=== PATIENT | female | born 1950 | race Caucasian/White ===

== ENCOUNTER 2019-05-24 07:28 | Day surgery (SDC) | payer MEDICARE, SELFPAY ==
[2019-05-24 08:09] VITALS: BP 125/75; PULSE 71; RESP 16; TEMP 36; O2SAT 99; BMI 29.8
[2019-05-24] MEDS: PROPARACAINE 0.5% OPHTH SOL 2 DROPS EYE-OP (08:15)
[2019-05-24] MEDS: CATARACT EYE COMPOUND (10 DROPS/SYRINGE) 3 DROPS EYE-OP (08:20)
--- NOTE | 2019-05-24 09:03 | PM.PREOP ---
Pre-operative Note Interval Note History & Physical reviewed/Exam performed by Physician: No Changes to H&P: No
--- NOTE | 2019-05-24 09:03 | PM.OP.1 ---
Operative Date/Time/Diagnoses Pre-op diagnosis: Nuclear Cataract Left eye Post-op diagnosis: same Procedure & Clinicians Surgeon: Pablo Mraadiaga Anesthesia Type: MAC +/- and Sedation Operative Notes Procedure in detail: Patient brought to the operating suite. Tetracaine drops placed in the left eye. Marking instrument was used to yuli the vertical and horizontal meridians. Patient was prepped and draped in sterile manner. Wire lid speculum was placed in the eye. Marking instrument was used to yuli the 125 degree meridain. Betadine drops were placed on the eye. This was irrigated. Lidocaine jelly was placed on the eye. A paracentesis port was created with a side-port blade. 0.1 mL 1% preservative free lidocaine was injected into the anterior chamber. The anterior chamber was deepened with viscoelastic. 2.6 mm keratome was used to create a temporal clear corneal incision. Cystotome and Utrata forceps were used to create continuous tear capsulorrhexis. Balanced salt solution was used to hydro dissect the nucleus. The phacoemulsification handpiece was inserted and the nucleus was removed using the stop and chop technique. The irrigation aspiration handpiece was inserted and the remaining cortex was removed. Anterior chamber was deepened with viscoelastic. An Palmer [id number] intraocular lens with a power of 22.5 was injected into the capsular bag. Irrigation aspiration handpiece was inserted and the remaining viscoelastic was removed. The lens was rotated to the 125 degree meridian. Incision was hydrated with balanced salt solution and found to be leak free with pressure with Weck-Arlen sponges. 0.1 mL Vigamox injected anterior chamber. 0.3 mL Kenalog 10 mg was injected subconjunctivally. Lid speculum was removed. The patient left the operating room in excellent condition. Complications: none Post-operative Condition: stable Disposition: same day surgery
[2019-05-24] MEDS: CHONDROIDTIN/SOD HYALURONATE 1.05 ML SYRINGE INTRAOCULA (09:17)
[2019-05-24] MEDS: TETRACAINE 0.5% OPHTH DROPS 4 ML 2 DROPS EYE-OP (09:17)
[2019-05-24] MEDS: BALANCED SALT IRRIG SOLN NO.2 500 ML, EPINEPHrine 1 MG IRR (09:17)
[2019-05-24] MEDS: PHENYLEPHRINE/LIDOCAINE VIAL (OR) 0.2 ML EYE-OP (09:18)
[2019-05-24] MEDS: TRIAMCINOLONE 50 MG/5 ML VIAL INJ (09:18)
[2019-05-24] MEDS: MOXIFLOXACIN INJ 5 MG/ML VIAL EYE-OP (09:18)
[2019-05-24] MEDS: LIDOCAINE JELLY 2% 5 ML 1 APPLIC TOP (09:18)
[2019-05-24 09:34] VITALS: BP 127/71; PULSE 67; RESP 16; TEMP 36.6; O2SAT 100
== END 2019-05-24 09:46 | disposition home or self-care (01) ==
PROVIDERS: Family Provider Family Medicine; PCP Family Medicine; Visit Provider Ophthalmology
PROC: (CPT 66984; principal; 2019-05-24 09:15)
DX: H25.12 Age-related nuclear cataract, left eye (principal); F41.9 Anxiety disorder, unspecified; J45.909 Unspecified asthma, uncomplicated
CPT/HCPCS: 66984; J0171; J2250; J3301; V2787

== ENCOUNTER 2019-06-07 07:02 | Day surgery (SDC) | payer MEDICARE, SELFPAY ==
[2019-06-07 07:50] VITALS: BMI 29.5
[2019-06-07] MEDS: PROPARACAINE 0.5% OPHTH SOL 2 DROPS EYE-OP (07:58)
[2019-06-07] MEDS: CATARACT EYE COMPOUND (10 DROPS/SYRINGE) 3 DROPS EYE-OP (08:10)
--- NOTE | 2019-06-07 08:37 | PM.PREOP ---
Pre-operative Note Interval Note History & Physical reviewed/Exam performed by Physician: No Changes to H&P: No
--- NOTE | 2019-06-07 08:37 | PM.OP.1 ---
Operative Date/Time/Diagnoses Pre-op diagnosis: Nuclear cataract right eye Procedure & Clinicians Procedure: Cataract Surgery Same procedure as scheduled: Yes Surgeon: Pablo Maradiaga Anesthesia Type: MAC +/- and Sedation Operative Notes Procedure in detail: Patient brought to the operating suite. Tetracaine drops placed in the right eye. marking instrument was used to yuli the vertical and horizontal meridians. Patient was prepped and draped in sterile manner. Wire lid speculum was placed in the eye. Marking instrument was used to yuli the 100 degree meridian. Betadine drops were placed on the eye. This was irrigated. Lidocaine jelly was placed on the eye. A paracentesis port was created with a side-port blade. 0.1 mL 1% preservative free lidocaine was injected into the anterior chamber. The anterior chamber was deepened with viscoelastic. 2.6 mm keratome was used to create a temporal clear corneal incision. Cystotome and Utrata forceps were used to create continuous tear capsulorrhexis. Balanced salt solution was used to hydro dissect the nucleus. The phacoemulsification handpiece was inserted and the nucleus was removed using the stop and chop technique. The irrigation aspiration handpiece was inserted and the remaining cortex was removed. Anterior chamber was deepened with viscoelastic. An Palmer [id number] intraocular lens with a power of 21.0 was injected into the capsular bag. Irrigation aspiration handpiece was inserted and the remaining viscoelastic was removed. The lens was rotated to the 100 degree meridian. Incision was hydrated with balanced salt solution and found to be leak free with pressure with Weck-Arlen sponges. 0.1 mL Vigamox injected anterior chamber. 0.3 mL Kenalog 10 mg was injected subconjunctivally. Lid speculum was removed. The patient left the operating room in excellent condition. Complications: none Post-operative Condition: stable Disposition: same day surgery
[2019-06-07] MEDS: MOXIFLOXACIN INJ 5 MG/ML VIAL EYE-OP (08:54)
[2019-06-07] MEDS: PHENYLEPHRINE/LIDOCAINE VIAL (OR) 0.2 ML EYE-OP (08:54)
[2019-06-07] MEDS: TRIAMCINOLONE 50 MG/5 ML VIAL INJ (08:55)
[2019-06-07] MEDS: TETRACAINE 0.5% OPHTH DROPS 4 ML 2 DROPS EYE-OP (08:55)
[2019-06-07] MEDS: CHONDROIDTIN/SOD HYALURONATE 1.05 ML SYRINGE INTRAOCULA (08:55)
[2019-06-07] MEDS: LIDOCAINE JELLY 2% 5 ML 1 APPLIC TOP (08:55)
[2019-06-07] MEDS: BALANCED SALT IRRIG SOLN NO.2 500 ML, EPINEPHrine 1 MG IRR (08:56)
[2019-06-07 09:10] VITALS: BP 134/69; PULSE 65; RESP 14; TEMP 36.2; O2SAT 98
== END 2019-06-07 09:29 | disposition home or self-care (01) ==
PROVIDERS: PCP Family Medicine; Visit Provider Ophthalmology
PROC: (CPT 66984; principal; 2019-06-07 08:45)
DX: H25.11 Age-related nuclear cataract, right eye (principal); F41.9 Anxiety disorder, unspecified; J45.909 Unspecified asthma, uncomplicated
CPT/HCPCS: 66984; J0171; J2250; J3010; J3301; V2787

== ENCOUNTER 2019-07-26 11:02 | Day surgery (SDC) | payer MEDICARE, SELFPAY ==
[2019-07-26] MEDS: PROPARACAINE 0.5% OPHTH SOL 2 DROPS EYE-OP (11:55)
[2019-07-26] MEDS: CATARACT EYE COMPOUND (10 DROPS/SYRINGE) 3 DROPS EYE-OP (12:00)
[2019-07-26 12:05] VITALS: BP 128/81; PULSE 74; RESP 20; TEMP 36.8; O2SAT 99; BMI 29.2
--- NOTE | 2019-07-26 12:53 | PM.PREOP ---
Pre-operative Note Interval Note History & Physical reviewed/Exam performed by Physician: No Changes to H&P: No
--- NOTE | 2019-07-26 12:53 | PM.OP.1 ---
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 Patient was prepped and drape in sterile fashion. The marking pen and toric instrument was used to yuli 29 degrees clockwise from current lens position. Betadine drops were placed on the eye. This was rinsed. Lidocaine jelly was placed on the eye. The existing paracentesis incision was opened with side port blade. 0.1 ml Lidocaine/phenilephrine mixture was injected into anterior chamber. The anterior chamber was deepened with viscoelastic. The existing main incision was opened with keratome. The capsule bag was filled with viscoelastic and the lens was gently freed in the bag with careful disection with viscoelastic. The haptics were very adherent to the capsule and mostly freed, but excessive disection was avoided because of risk of capusle bag or zonule tears. The lens was gently rotated. Only about 20 degree rotation clockwise rather than the planed 29 degrees clockwise rotation was achieved to avoid risk of bag or zonule damage. The viscoelastic was removed. The incision was hydrated with balanced salt solution and was leak free with pressure with wekcel sponges. 0.1mm moxifoxacin was injected into the anterior chamber. 0.2mm of [id number] was injected subconjunctivally. The lid speculum was removed. The patient left the operating room in excellent condition.
[2019-07-26] MEDS: PHENYLEPHRINE/LIDOCAINE VIAL (OR) 0.2 ML EYE-OP ×2 (13:12→13:14)
[2019-07-26] MEDS: CHONDROIDTIN/SOD HYALURONATE 1.05 ML SYRINGE INTRAOCULA (13:13)
[2019-07-26] MEDS: LIDOCAINE JELLY 2% 5 ML 1 APPLIC TOP (13:13)
[2019-07-26] MEDS: MOXIFLOXACIN INJ 5 MG/ML VIAL EYE-OP (13:13)
[2019-07-26] MEDS: TETRACAINE 0.5% OPHTH DROPS 4 ML 2 DROPS EYE-OP (13:14)
[2019-07-26] MEDS: TRIAMCINOLONE 50 MG/5 ML VIAL INJ (13:14)
[2019-07-26] MEDS: BALANCED SALT IRRIG SOLN NO.2 500 ML, EPINEPHrine 1 MG IRR (13:15)
[2019-07-26 13:27] VITALS: BP 142/77; PULSE 74; RESP 15; TEMP 36.2; O2SAT 97
== END 2019-07-26 13:49 | disposition home or self-care (01) ==
PROVIDERS: PCP Family Medicine; Visit Provider Ophthalmology
PROC: (CPT 66825; principal; 2019-07-26 13:15)
DX: T85.22XA Displacement of intraocular lens, initial encounter (principal); J45.909 Unspecified asthma, uncomplicated; F41.9 Anxiety disorder, unspecified
CPT/HCPCS: 66825; J0171; J2250; J3010; J3301

== ENCOUNTER → 2021-06-19 12:04 | Outpatient (CLI) | payer MEDICARE, SELFPAY ==
--- NOTE | 2021-06-19 12:10 | DI.CT.S_ITS ---
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 Additional oblique axial 3.0 mm sections acquired through the pharynx. 3 mm thick coronal and sagittal reformats were generated. For radiation dose reduction, the following was used: automated exposure control. COMPARISON: None. FINDINGS: Image quality: Excellent. Lymph nodes: No enlarged lymph nodes seen throughout the neck. Right common carotid artery follows a medial course project into the retropharyngeal space. Vessels: Visualized vasculature appears patent. Neck spaces: The oropharynx, nasopharynx, and pharynx demonstrate no mucosal lesions. The vocal cords, false vocal cords, pyriform sinuses, epiglottis, vallecula, and tongue base all appear normal. Extramucosal spaces appear unremarkable. Glands: The parotid and submandibular glands appear normal. Thyroid gland is within normal limits. Miscellaneous: Visualized brain and orbits appear normal. Lung apices appear clear. Superficial soft tissues appear normal. Bones: No suspicious bony lesions. Spine degenerative disc disease and facet arthropathy. Visualized sinuses and mastoids appear unremarkable. IMPRESSION: 1. No mucosal based mass or other abnormal mass. 2. No lymphadenopathy based on size criteria. Dictated by: Marissa Connolly MD, PhD on 06/19/2021 at 14:12 Approved by: Marissa Connolly MD, PhD on 06/19/2021 at 14:16
--- NOTE | 2021-06-19 12:10 | DI.CT.S_ITS ---
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 Coronal and sagittal reformats were performed. For radiation dose reduction, the following was used: automated exposure control, adjustment of mA and/or kV according to patient size. COMPARISON: Outside Film, CT, CT ABDOMEN WITH/WITHOUT CONTRAST, 04/30/2018, 17:03. FINDINGS: Image quality: Excellent. CHEST: Lower Neck: No enlarged lymph nodes. Thyroid: Within normal limits. Axillae: No enlarged lymph nodes. Chest Wall: Unremarkable. Lungs and Airways: Multiple pulmonary nodules as follows: 1. Minor fissure nodule measuring 3 mm, image 157/4. 2. 2 mm right middle lobe pulmonary nodule, image 173/4. 3. 3 mm pulmonary nodule, right lower lobe, image 191. 4. 3 mm pulmonary nodule, extreme left lung base, image 263. 5. 3 mm pleural based pulmonary nodule, left lower lobe, image 220. 6. Another 3 mm pulmonary nodule, left lower lobe, image 220. Pleura: No pneumothorax or pleural effusions. Heart: Heart size is normal. No pericardial effusion. Thoracic Vessels: The aorta and pulmonary arteries demonstrate normal size. Mediastinum and Ibis: No enlarged lymph nodes. Esophagus: No wall thickening. Small hiatal hernia. ABDOMEN: Liver: Unremarkable. Gallbladder: Unremarkable. Biliary ducts: Unremarkable. Pancreas: Unremarkable. Spleen: Unremarkable. Adrenal Glands: Unremarkable. Kidneys and Ureters: Unremarkable. Stomach and Bowel: No dilated bowel loops. Diverticulosis without evidence of diverticulitis. Peritoneum: No abnormal intraperitoneal fluid. No free air. Ventral Wall: No hernia. Abdominal Nodes: No retroperitoneal or mesenteric adenopathy by size criteria. Vessels: Aorta and inferior vena cava are normal in size. PELVIS: Pelvic Organs: Incidental note made of small uterine fibroids. Bladder: Unremarkable. Pelvic Nodes: No enlarged lymph nodes. Miscellaneous: No inguinal hernias are seen. Bones: Subacute healing fractures of the lateral right 4th, 5th, 6th, 7th, and 8th, and 9th ribs. There are 2 tiny sclerotic lesions involving the T11 vertebral body which may potentially be bone islands. Small incidental central posterior disc protrusion at L5-S1. IMPRESSION: 1. Multiple small bilateral pulmonary nodules are of unknown significance. They may potentially represent benign disease. 2. There are 2 tiny sclerotic areas in the T11 vertebral body, possibly representing bone islands. 3. No other findings which are suspicious for malignancy in the chest, abdomen, and pelvis. Dictated by: Ruben Guzman M.D. on 06/19/2021 at 15:41 Approved by: Ruben Guzman M.D. on 06/19/2021 at 16:06
[2021-06-19 12:54] LABS: Alanine Aminotransferase 16 IU/L (<35); Albumin 4.6 g/dL (3.5-5.0); Albumin Globulin Ratio 1.8 (1.0-2.8); Alkaline Phosphatase 59 U/L (38-126); Aspartate Aminotransferase 25 IU/L (14-36); BUN Creatinine Ratio 14.1 (6-22); Bilirubin Total 0.4 mg/dL (0.2-1.3); Blood Urea Nitrogen 12 mg/dL (7-17); Calcium 9.5 mg/dL (8.4-10.2); Carbon Dioxide 32 mmol/L (22-32); Chloride 102 mmol/L (98-107); Estimated Glomerular Filt Rate > 60.0 mL/min (>60); Globulin 2.6 g/dL (1.7-4.1); Glucose 97 mg/dL (80-110); HEMOLYSIS < 15 (0-50); Potassium 4.2 mmol/L (3.4-5.1); Sodium 141 mmol/L (137-145); Total Protein 7.2 g/dL (6.3-8.2)
== END ==
PROVIDERS: PCP Family Medicine; Referring Provider Family Medicine; Visit Provider Family Medicine
DX: C91.00 Acute lymphoblastic leukemia not having achieved remission (principal); R91.8 Other nonspecific abnormal finding of lung field; K44.9 Diaphragmatic hernia without obstruction or gangrene
CPT/HCPCS: 36415; 70491; 71260; 74177; 80053; Q9967

== ENCOUNTER → 2022-01-26 12:46 | Outpatient (CLI) | payer MEDICARE, SELFPAY ==
--- NOTE | 2022-01-26 12:49 | DI.RAD.S_ITS ---
PROCEDURE: XR WRIST LT MIN 3V INDICATIONS: left upper extremity injury TECHNIQUE: 4 views of the wrist were acquired. COMPARISON: None. FINDINGS: Bones: No fractures or dislocations. No suspicious bony lesions. Scaphoid view: Unremarkable Soft tissues: No suspicious soft tissue calcifications. IMPRESSION: Unremarkable left wrist radiographs Approved by: Alex Bernal M.D. on 01/26/2022 at 14:11
--- NOTE | 2022-01-26 12:49 | DI.RAD.S_ITS ---
PROCEDURE: XR SHOULDER LT MIN 2V INDICATIONS: left upper extremity injury TECHNIQUE: 4 views of the shoulder were acquired. COMPARISON: None. FINDINGS: Bones: No fractures or dislocations. No suspicious bony lesions. Visualized ribs appear intact. Soft tissues: No suspicious soft tissue calcifications. IMPRESSION: Unremarkable left shoulder radiographs Approved by: Alex Bernal M.D. on 01/26/2022 at 14:11
== END ==
PROVIDERS: PCP Family Medicine; Referring Provider Nurse Practitioner Family; Visit Provider Nurse Practitioner Family
DX: S49.92XA Unspecified injury of left shoulder and upper arm, initial encounter (principal)
CPT/HCPCS: 73030; 73110